=== PATIENT | male | born 1965 | race Caucasian/White ===

== ENCOUNTER 2018-11-05 13:36 | Emergency (ER) | payer SELFPAY ==
[~2018-11-05] VITALS: Ht 170.2 cm; Wt 102.4 kg
[2018-11-05 13:45] VITALS: BP 164/86; PULSE 100; RESP 18; Ht 170.2 cm; Wt 102.4 kg
[2018-11-05] MEDS ORDERED: ACET500T98 PO (16:48)
--- NOTE | 2018-11-05 16:55 | ERD ---
ER Documentation Chief Complaint Chief Complaint left arm pain/bruise after lifting 3 days ago HPI 52-year-old male no significant past history presents for left upper arm pain and swelling x3 days. He states that he was pulling out some drywall and pulled too hard and subsequently developed the pain. Pain is noted to be 8 out of 10. No pain radiation. Pain is described as a sharp and dull pain. He is able to move his arms well. However there is pain. Denies fevers or chills. Denies chest pain or shortness of breath. No other modifying factors noted, no mary tments tried at home. ROS All systems reviewed and are negative except as per history of present illness. Medications Home Meds Active Scripts Acetaminophen (Acetaminophen) 500 Mg Tablet, 500 MG PO Q4H PRN for PAIN, #30 TAB Prov:JAHAIRA WILKINS DO 11/05/18 PMhx/Soc Medical and Surgical Hx: pt denies Medical Hx, pt denies Surgical Hx Hx Alcohol Use: No Hx Substance Use: No Hx Tobacco Use: No FmHx Family History: No coronary disease Physical Exam Vitals Vital Signs Date Temp Pulse Resp B/P (MAP) Pulse Ox O2 O2 Flow FiO2 Time Delivery Rate 11/05/18 97.8 100 18 164/86 96 13:45 (112) Physical Exam Const: No acute distress Resp: Clear to auscultation bilaterally Cardio: Regular rate and rhythm, no murmurs Skin: No petechiae or rashes Back: No midline or flank tenderness Neur: Awake and alert Psych: Normal Mood and Affect Upper Extremity -left Skin: No laceration, or evidence of external trauma Compartments: Soft Motor: Full active range of motion shoulder/elbow/wrist/hand Sensation: Intact shoulder/pinky/middle finger/thumb web space Bones: Nontender humerus/elbow/forearm/wrist/hand Snuffbox: Nontender Joints: There is bruising noted over the left upper extremity Pulses/Perfusion: 2+ radial, Capillary refill < 2 seconds Results 24 hrs Current Medications Medications Dose Sig/Susana Start Time Status Last (Trade) Ordered Route PRN Stop Time Admin Dose Reason Admin 650 mg ONCE ONCE 11/05/18 Acetaminophen PO 17:00 (Tylenol 11/05/18 17:01 Tab) Procedures/MDM Medical Decision Making: Differential diagnosis includes but not limited to fracture, dislocation, muscle strain, ligamentous sprain. Patient appeared well on physical exam. There was tenderness over the left upper extremity Patient was neurovascularly intact ED course: Patient was given Tylenol. Symptoms improved with treatment. Patient likely has a muscle strain Shlomo bandage was applied in the ER for muscle support Patient advised regarding ice, elevation for pain and swelling Prescription(s): Patient given prescription for supportive medication(s). Patient advised to follow up with PCP in 1-2 days. Patient advised to return to ED for new or worsening symptoms. Patient stable on discharge from the ED. Disclaimer: Inadvertent spelling and grammatical errors are likely due to EHR/dictation software use and do not reflect on the overall quality of patient care. Also, please note that the electronic time recorded on this note does not necessarily reflect the actual time of the patient encounter. Departure Diagnosis: Primary Impression: Muscle strain Condition: Fair Patient Instructions: Muscle Strain, Extremity Referrals: [facility] YOU HAVE RECEIVED A MEDICAL SCREENING EXAM AND THE RESULTS INDICATE THAT YOU DO NOT HAVE A CONDITION THAT REQUIRES URGENT TREATMENT IN THE EMERGENCY DEPARTMENT. FURTHER EVALUATION AND TREATMENT OF YOUR CONDITION CAN WAIT UNTIL YOU ARE SEEN IN YOUR DOCTORS OFFICE WITHIN THE NEXT 1-2 DAYS. IT IS YOUR RESPONSIBILITY TO MAKE AN APPOINTMENT FOR FOLOW-UP CARE. IF YOU HAVE A PRIMARY DOCTOR --you should call your primary doctor and schedule an appointment IF YOU DO NOT HAVE A PRIMARY DOCTOR YOU CAN CALL OUR PHYSICIAN REFERRAL HOTLINE AT IF YOU CAN NOT AFFORD TO SEE A PHYSICIAN YOU CAN CHOSE FROM THE FOLLOWING [facility] CL[facility]ICS [facility] [address] [facility] [facility] [address] [facility] [address] [facility] [address] [facility]. [facility] [address] [facility]. [facility]. [address] Additional Instructions: Llame al doctor MAANA y edwar rose SHARRI PARA DENTRO DE 1-2 DANIELSON.Dgale a la secretaria que nosotros le instruimos hacer esta sharri.Avise o llame si taylor condicin se empeora antes de la sharri. Regresa aqui si peor o no mejor. ice 5-10 minutes 3 times daily for pain and swelling pain medications as directed and as needed elevate arm over heart to decrease swelling gentle stretching once pain and swelling improves light duty for one week JAHAIRA WILKINS DO November 05, 2018 16:54
[2018-11-05] MEDS ORDERED: ACETAMINOPHEN 325 MG TAB PO ONE (17:00)
== END 2018-11-05 17:09 | disposition home or self-care (01) ==
LOC: FTE 13:36
DX: S46.912A Strain of unspecified muscle, fascia and tendon at shoulder and upper arm level, left arm, initial encounter (principal); X50.0XXA Overexertion from strenuous movement or load, initial encounter; Y92.9 Unspecified place or not applicable
CPT/HCPCS: 99282